=== PATIENT | female | born 1990 | race African-American/Black ===

== ENCOUNTER 2016-11-12 18:15 | Emergency (ER) | payer OTHER ==
[~2016-11-12] VITALS: Ht 172.7 cm; Wt 86.2 kg
[~2016-11-12 18:15] MED LIST: CIPRO500 MG PO; CYCLOBENZAPRINE5 MG PO; DIFLUCAN200 MG PO; FLAGYL500 MG PO; IBUPROFEN 800800 MG PO; MONISTAT 745 GM VG; NAPROSYN500 MG PO; PRILOSEC 20 MG20 MG PO; TRAMADOL 50 MG50 MG PO; ZANTAC 150MG T150 M1 PO
[2016-11-12] MEDS ORDERED: MAGIC MOUTHWASH SWISH&SPIT (18:42)
[2016-11-12] MEDS ORDERED: NORCO 5-325 TA1 EACH PO (18:52)
[2016-11-12] MEDS ORDERED: ZOFRAN ODT4 MG PO (18:52)
== END 2016-11-12 19:17 | disposition home or self-care (01) ==
LOC: ER 18:15
DX: K08.89 Other specified disorders of teeth and supporting structures (principal)

== ENCOUNTER 2018-03-03 19:20 | Emergency (ER) | payer OTHER ==
[~2018-03-03] VITALS: Ht 172.7 cm; Wt 86.2 kg
[~2018-03-03 19:20] MED LIST changes: +MAGIC MOUTHWASH SWISH&SPIT; +NORCO 5-325 TA1 EACH PO; +ZOFRAN ODT4 MG PO
[2018-03-03] MEDS ORDERED: NOHOMEMEDICATIONS (19:37)
[2018-03-03 19:44] LABS: URINE BILIRUBIN 1+ (Negative); URINE BLOOD NEGATIVE (Negative); URINE CLARITY CLEAR; URINE COLOR YELLOW; URINE GLUCOSE-RANDOM* NEGATIVE (Negative); URINE KETONES 1+ (Negative); URINE LEUKOCYTES-REFLEX NEGATIVE (Negative); URINE NITRITE-REFLEX NEGATIVE (Negative); URINE PROTEIN (DIPSTICK) 2+ (Negative); URINE SPECIFIC GRAVITY >= 1.030 (1.005-1.035); URINE UROBILINOGEN 0.2 E.U./dl (0.2-1.0)
[2018-03-03 19:47] LABS: ICTOTEST (BILI CONFIRMATORY) Negative (Negative)
[2018-03-03 19:57] LABS: COARSE GRANULAR CASTS 0-3 Few /LPF (None Seen); CRYSTALS None Seen /LPF (None Seen); SQUAMOUS >10 Many /LPF (0-3); URINE RBC 0-2 Rare /HPF (0-2); URINE WBC-REFLEX 0-5 Rare /HPF (0-5)
[2018-03-03] MEDS ORDERED: NAPROSYN500 MG PO (20:59)
[2018-03-05 17:10] LABS: NEISSERIA GONORRHEA-PCR Negative (Negative)
== END 2018-03-03 21:05 | disposition home or self-care (01) ==
LOC: ER 19:20
PROVIDERS: Physician Assistant
DX: M54.5 Low back pain (principal); R35.0 Frequency of micturition

== ENCOUNTER 2018-04-29 17:47 | Emergency (ER) | payer OTHER ==
[~2018-04-29] VITALS: Ht 175.3 cm; Wt 80.7 kg
[~2018-04-29 17:47] MED LIST changes: +NOHOMEMEDICATIONS
[2018-04-29 18:04] LABS: URINE BILIRUBIN NEGATIVE (Negative); URINE BLOOD NEGATIVE (Negative); URINE CLARITY CLEAR; URINE COLOR YELLOW; URINE GLUCOSE-RANDOM* NEGATIVE (Negative); URINE KETONES NEGATIVE (Negative); URINE LEUKOCYTES NEGATIVE (Negative); URINE NITRITE NEGATIVE (Negative); URINE PROTEIN (DIPSTICK) NEGATIVE (Negative); URINE SPECIFIC GRAVITY >= 1.030 (1.005-1.035); URINE UROBILINOGEN 0.2 E.U./dl (0.2-1.0)
[2018-04-29 19:27] LABS: HEMATOCRIT 31.2 % (37.0-47.0); HEMOGLOBIN 10.4 gm/dL (12.0-15.0); MCH 29.2 pg (26.0-34.0); MCHC 33.4 g/dL (28.0-37.0); MCV 87.4 fL (80.0-100.0); RBC 3.57 mil/uL (4.20-5.00); RDW 13.9 % (10.5-14.5); WBC 6.2 thou/uL (4.0-11.0)
== END 2018-04-29 20:11 | disposition home or self-care (01) ==
LOC: ER 17:47
PROVIDERS: Physician Assistant
DX: O26.891 Other specified pregnancy related conditions, first trimester (principal); R10.2 Pelvic and perineal pain; Z3A.01 Less than 8 weeks gestation of pregnancy

== ENCOUNTER 2018-12-18 20:02 | Emergency (ER) | payer OTHER ==
[~2018-12-18] VITALS: Ht 172.7 cm; Wt 105.2 kg
[2018-12-18] MEDS ORDERED: IBUPROFEN 800800 M1 PO (20:12)
[2018-12-18 21:21] LABS: BE(vivo) 0 mmol/L (-2 to +3); HCO3 24.8 mmol/L (22.0-26.0); PCO2 VENOUS 41.3 mmHg (41.0-51.0); PO2 VENOUS 64.6 mmHg (35.0-45.0)
[2018-12-18 22:20] LABS: URINE BILIRUBIN NEGATIVE (Negative); URINE BLOOD TRACE (Negative); URINE CLARITY CLEAR; URINE COLOR YELLOW; URINE GLUCOSE-RANDOM* NEGATIVE (Negative); URINE KETONES NEGATIVE (Negative); URINE LEUKOCYTES TRACE (Negative); URINE NITRITE NEGATIVE (Negative); URINE PROTEIN (DIPSTICK) NEGATIVE (Negative); URINE SPECIFIC GRAVITY >= 1.030 (1.005-1.035); URINE UROBILINOGEN 0.2 E.U./dl (0.2-1.0)
[2018-12-18 22:26] LABS: ABSOLUTE NEUTROPHILS 2.3 thou/uL (1.4-8.2); ANION GAP 10 mmol/L (7-16); BASOPHILS 0.9 % (0.0-2.0); BUN 14 mg/dL (7-18); CALCIUM 8.8 mg/dL (8.5-10.1); CHLORIDE 106 mmol/L (98-107); CO2 27 mmol/L (21-32); CREATININE 0.9 mg/dL (0.6-1.0); GLUCOSE 95 mg/dL (74-106); LYMPHOCYTES 41.1 % (24.0-44.0); MCHC 32.5 g/dL (28.0-37.0); MCV 89.2 fL (80.0-100.0); MONOCYTES 8.7 % (1.0-8.0); PLATELET COUNT 181 thou/uL (150-400); POLYS 41.3 % (36.0-66.0); POTASSIUM 3.9 mmol/L (3.5-5.1); RBC 4.49 mil/uL (4.20-5.00); RDW 12.8 % (10.5-14.5); SODIUM 143 mmol/L (136-145); WBC 5.5 thou/uL (4.0-11.0)
[2018-12-18 22:35] LABS: ALBUMIN 3.1 g/dL (3.4-5.0); SGOT 22 U/L (15-37); SGPT 25 U/L (30-65); TOTAL BILIRUBIN 0.4 mg/dL (<0.1-1.0); TOTAL PROTEIN 7.2 g/dL (6.4-8.2); TROPONIN-I <0.06 ng/mL (<0.06); URIC ACID* 5.5 mg/dL (2.6-7.2)
[2018-12-18] MEDS ORDERED: NAPROSYN500 MG PO (22:37)
[2018-12-18] MEDS ORDERED: TRAMADOL 50 MG50 MG PO (22:37)
[2018-12-18 23:00] VITALS: BP 148/92
--- NOTE | 2018-12-19 08:10 | EKG ---
[place] [id number] [facility] [place] [address] ELECTROCARDIOGRAM REPORT Name: CARLA BARBOSA [facility] [id number] ������������������ Admission: 12/18/18 ������������������ Attend Phys: Discharge: 12/18/18 ������������������ Date of : 89 Report #: [id number] ����������������������������������������������������������������� [id number] THIS REPORT FOR: //name// [facility] ED Test Date: 2018-12-18 Test Time: 22:00:17 Pat Name: CARLA BARBOSA Department: Room: Gender: F Manager [employer]: : 1990 Requested By: Sp Hansen Order Number: [id number] MD: Gonzalez Bolivar Measurements Intervals [place] Rate: 61 P: 42 MN: 168 QRS: 33 QRSD: 83 T: 22 QT: 416 QTc: 419 Interpretive Statements Sinus rhythm Normal tracing No previous ECG available for comparison Electronically Signed On 12-19-2018 8:10:21 [facility] ARCHITECT by Gonzalez Bolivar [email or web address] ��������������������������������������������� <ELECTRONICALLY SIGNED> ���������������������������������������� By: Gonzalez Bolivar MD, [facility] ��������������������������������������������� 12/19/18 0810 220 99 Gonzalez Bolivar MD, FACC /EPI
== END 2018-12-18 23:00 | disposition home or self-care (01) ==
LOC: ER 20:02
PROVIDERS: Emergency Medicine
DX: O16.5 Unspecified maternal hypertension, complicating the puerperium (principal); R51 Headache; R06.02 Shortness of breath; R53.83 Other fatigue; Z90.49 Acquired absence of other specified parts of digestive tract

== ENCOUNTER 2019-11-06 08:13 | Emergency (ER) | payer OTHER ==
[~2019-11-06] VITALS: Ht 172.7 cm; Wt 99.8 kg
[~2019-11-06 08:13] MED LIST changes: +IBUPROFEN 800800 M1 PO
[2019-11-06 08:18] VITALS: BP 97/49
[2019-11-06] MEDS ORDERED: TAMIFLU75 MG PO (09:07)
== END 2019-11-06 09:09 | disposition home or self-care (01) ==
LOC: ER 08:13
DX: J11.1 Influenza due to unidentified influenza virus with other respiratory manifestations (principal); Z90.49 Acquired absence of other specified parts of digestive tract

== ENCOUNTER 2020-06-12 01:34 | Emergency (ER) | payer OTHER ==
[~2020-06-12] VITALS: Ht 170.2 cm; Wt 99.8 kg
[~2020-06-12 01:34] MED LIST changes: +TAMIFLU75 MG PO
[2020-06-12] MEDS ORDERED: TOPAMAX 25 MG T25 M1 PO (01:47)
[2020-06-12] MEDS ORDERED: PHENTERMINE H37.5 MG PO (01:48)
[2020-06-12] MEDS ORDERED: AUGMENTIN 875-1 EACH PO (02:52)
[2020-06-12] MEDS ORDERED: IBUPROFEN 600600 M1 PO (02:52)
[2020-06-12] MEDS ORDERED: PERCOCET PO (02:57)
[2020-06-12 03:10] VITALS: BP 122/76
== END 2020-06-12 03:10 | disposition home or self-care (01) ==
LOC: ER 01:34
DX: L03.012 Cellulitis of left finger (principal); Z90.49 Acquired absence of other specified parts of digestive tract; Z79.899 Other long term (current) drug therapy

== ENCOUNTER 2021-03-29 13:17 | Emergency (ER) | payer BC, OTHER ==
[~2021-03-29] VITALS: Ht 172.7 cm; Wt 97.1 kg
[~2021-03-29 13:17] MED LIST changes: +AUGMENTIN 875-1 EACH PO; +IBUPROFEN 600600 M1 PO; +PERCOCET PO; +PHENTERMINE H37.5 MG PO; +TOPAMAX 25 MG T25 M1 PO
[2021-03-29 14:14] LABS: ABSOLUTE NEUTROPHILS 3.1 thou/uL (1.4-8.2); BASOPHILS 1.1 % (0.0-2.0); EOSINOPHILS 2.8 % (0.0-3.0); HEMATOCRIT 38.5 % (37.0-47.0); HEMOGLOBIN 12.6 gm/dL (12.0-15.0); MCH 28.7 pg (26.0-34.0); MCHC 32.6 g/dL (28.0-37.0); MONOCYTES 6.2 % (1.0-8.0); PLATELET COUNT 184 thou/uL (150-400); POLYS 60.9 % (36.0-66.0); RBC 4.38 mil/uL (4.20-5.00); RDW 14.3 % (10.5-14.5); WBC 5.2 thou/uL (4.0-11.0)
[2021-03-29 14:25] LABS: ANION GAP 8 mmol/L (7-16); BUN 12 mg/dL (7-18); CALCIUM 9.6 mg/dL (8.5-10.1); CHLORIDE 104 mmol/L (98-107); CO2 28 mmol/L (21-32); GLUCOSE 82 mg/dL (74-106); POTASSIUM 3.4 mmol/L (3.5-5.1); SODIUM 140 mmol/L (136-145)
[2021-03-29 14:26] LABS: URINE BILIRUBIN NEGATIVE (Negative); URINE BLOOD 3+ (Negative); URINE GLUCOSE-RANDOM* NEGATIVE (Negative); URINE KETONES NEGATIVE (Negative); URINE LEUKOCYTES-REFLEX TRACE (Negative); URINE NITRITE-REFLEX NEGATIVE (Negative); URINE PROTEIN (DIPSTICK) 2+ (Negative); URINE SPECIFIC GRAVITY >= 1.030 (1.005-1.035)
[2021-03-29 14:27] LABS: URINE CLARITY CLOUDY; URINE COLOR BROWN
[2021-03-29 14:30] LABS: BACTERIA-REFLEX 1-9 Few /HPF (None Seen); CRYSTALS None Seen /LPF (None Seen); SQUAMOUS 0-3 Few /LPF (0-3); URINE RBC >20 Many /HPF (NONE SEEN); URINE WBC-REFLEX 0-5 Rare /HPF (0-5)
[2021-03-29 14:32] LABS: MAGNESIUM 1.9 mg/dL (1.8-2.4); SGOT 19 U/L (15-37); SGPT 20 U/L (14-59); TOTAL BILIRUBIN 0.6 mg/dL (0.2-1.0); TOTAL PROTEIN 8.3 g/dL (6.4-8.2); TROPONIN-I <0.06 ng/mL (<0.06)
[2021-03-29 15:55] VITALS: BP 121/78
--- NOTE | 2021-03-30 07:12 | EKG ---
[address] [address] ELECTROCARDIOGRAM REPORT Name: CARLA BARBOSA [facility] [id number] Admission: 03/29/21 Attend Phys: Discharge: 03/29/21 Date of : [birth year] Report #: [id number] [facility] ED Test Date: 2021-03-29 Test Time: 14:24:56 Pat Name: CARLA BARBOSA Department: Room: Gender: Business Segment Manager: MELANIA : 1990 Requested By: Chuck Grant Order Number: [id number] MD: Sylvain Mcbride Measurements Intervals [place] Rate: 72 P: 64 FL: 158 QRS: 52 QRSD: 85 T: 33 QT: 379 QTc: 415 Interpretive Statements Sinus rhythm Probable left atrial enlargement Compared to ECG 12/18/2018 22:00:17 No significant changes Electronically Signed On 03-30-2021 7:12:26 CDT by Sylvain Mcbride [email or web address] <ELECTRONICALLY SIGNED> By: Sylvain Mcbride MD, [facility] 03/30/21 0712 1424 1424 Sylvain Mcbride MD, FACC /EPI
== END 2021-03-29 15:55 | disposition home or self-care (01) ==
LOC: ER 13:17
PROVIDERS: Physician Assistant
DX: R53.83 Other fatigue (principal); Z79.899 Other long term (current) drug therapy

== ENCOUNTER 2021-09-26 05:27 | Emergency (ER) | payer OTHER ==
[~2021-09-26] VITALS: Ht 172.7 cm; Wt 90.7 kg
[2021-09-26 06:39] LABS: URINE BILIRUBIN NEGATIVE (Negative); URINE BLOOD 3+ (Negative); URINE CLARITY CLEAR; URINE COLOR YELLOW; URINE GLUCOSE-RANDOM* NEGATIVE (Negative); URINE KETONES NEGATIVE (Negative); URINE LEUKOCYTES-REFLEX TRACE (Negative); URINE NITRITE-REFLEX NEGATIVE (Negative); URINE PROTEIN (DIPSTICK) NEGATIVE (Negative); URINE SPECIFIC GRAVITY 1.025 (1.005-1.035); URINE UROBILINOGEN 0.2 E.U./dl (0.2-1.0)
[2021-09-26 06:54] LABS: CASTS None Seen /LPF (None Seen); SQUAMOUS >10 Many /LPF (0-3)
[2021-09-26 06:55] LABS: URINE WBC-REFLEX 0-5 Rare /HPF (0-5)
[2021-09-26 06:56] LABS: BACTERIA-REFLEX 1-9 Few /HPF (None Seen); CRYSTALS None Seen /LPF (None Seen); URINE RBC 3-10 Few /HPF (NONE SEEN)
[2021-09-26] MEDS ORDERED: PYRIDIUM200 MG PO (07:06)
[2021-09-26] MEDS ORDERED: MOBIC15 MG PO (07:06)
[2021-09-26 07:25] VITALS: BP 130/66
== END 2021-09-26 07:30 | disposition home or self-care (01) ==
LOC: ER 05:27
PROVIDERS: Emergency Medicine
DX: S39.012A Strain of muscle, fascia and tendon of lower back, initial encounter (principal); R35.0 Frequency of micturition; Z90.49 Acquired absence of other specified parts of digestive tract; Z87.442 Personal history of urinary calculi; Z98.890 Other specified postprocedural states; Z79.891 Long term (current) use of opiate analgesic; Z79.899 Other long term (current) drug therapy; X58.XXXA Exposure to other specified factors, initial encounter; Y93.89 Activity, other specified; Y92.89 Other specified places as the place of occurrence of the external cause; Y99.8 Other external cause status